=== PATIENT | female | born 1950 | race Caucasian/White ===

== ENCOUNTER → 2020-01-25 11:08 | Outpatient (BNVA) | payer MEDICARE, OTHER, SELFPAY | PROVIDERS: Family Provider Family Medicine; PCP Family Medicine; Visit Provider Family Medicine | DX: E78.5 Hyperlipidemia, unspecified (principal); K21.9 Gastro-esophageal reflux disease without esophagitis | CPT/HCPCS: 80053; 80061; 85025 ==

== ENCOUNTER → 2020-02-15 11:27 | Outpatient (BNVA) | payer MEDICARE, OTHER, SELFPAY | PROVIDERS: Family Provider Family Medicine; PCP Family Medicine; Visit Provider Family Medicine | DX: E78.5 Hyperlipidemia, unspecified (principal); K21.9 Gastro-esophageal reflux disease without esophagitis | CPT/HCPCS: 80053 ==

== ENCOUNTER → 2020-03-24 08:38 | Outpatient (BNVA) | payer MEDICARE, OTHER, SELFPAY | PROVIDERS: PCP Family Medicine; Visit Provider Surgery | DX: Z20.828 Contact with and (suspected) exposure to other viral communicable diseases (principal); Z01.812 Encounter for preprocedural laboratory examination | CPT/HCPCS: 87635 ==

== ENCOUNTER 2020-03-29 05:57 | Day surgery (SDC) | payer MEDICARE, OTHER, SELFPAY ==
[2020-03-29 06:16] VITALS: BP 123/87; PULSE 77; RESP 16; TEMP 36.8; O2SAT 99
[2020-03-29] MEDS: sodium chloride 0.9% 1,000 ML 30 ML IV (06:20)
--- NOTE | 2020-03-29 06:50 | ANES.PREANE2 ---
Pre-Anesthetic Assessment Pre-Anesthetic Assessment: Height/Weight: Height 1.55 m Weight 57.606 kg Temp Pulse Resp BP Pulse Ox 98.2 F 77 16 123/87 99 03/29/20 06:16 03/29/20 06:16 03/29/20 06:16 03/29/20 06:16 03/29/20 06:16 Preop Diagnosis: panendoscopy Proposed Procedure: Operation Date: 03/29/20 07:00 Proposed Procedures p EGD [id number] [id number] K21.9 Z86.010(Not Applicable) - Nikolas Powers MD s Colonoscopy(Not Applicable) - Nikolas Powers MD Was Beta Irlanda taken within 24 hours: N/A Last intake: Intake Last Liquid Date 03/28/20 Last Liquid Time 22:00 Last Solid Date 03/27/20 Last Solid Time 22:00 Social: Social History: No alcohol and No tobacco Exam: Pre-Anes Outpt Exam: alert, oriented x 3, clear to auscultation bilaterally and regular rate & rhythm Airway: Submandibular: WNL Cervical ROM: WNL MP: 2 Dentition: Chipped Additional comments: Advanced dental disease throughout History/ROS: No significant history except as noted Pulmonary: Pulmonary: None reported CV/HEM: CV/HEM: None reported : : None reported Hepatic: Hepatic: None reported GI: GI: GERD Musc/skel: Musc/skel: None reported Neuropsych: Neuropsych: None reported Anesthetic Plan: ASA status: 2 Anesthesia: MAC PFSH Anesthesia PFSH: Medical History (Updated 02/23/20 @ 17:06 by Nikolas Powers MD) Dyslipidemia GERD (gastroesophageal reflux disease) History of colon polyps Surgical History H/O: hysterectomy History of appendectomy History of colonoscopy with polypectomy History of nasal surgery History of tubal ligation Family History Other CAD (coronary artery disease) Cancer Social History Smoking and tobacco status: never smoked Alcohol intake: never Data Anesthesia Cardiac Studies: No Data to Display
--- NOTE | 2020-03-29 07:04 | P.HP_ITS ---
Same Day Surgery H&P Indication for Procedure/HPI DATE OF PROCEDURE: March 29, 2020 CHIEF COMPLAINT/INDICATIONFOR SURGICAL PROCEDURE: gerd /polyps PREOP DIAGNOSIS: panendoscopy PLANNED PROCEDRUE: Operation Date: 03/29/20 07:00 Proposed Procedures p EGD [id number] K21.9 Z86.010(Not Applicable) - Nikolas Powers MD s Colonoscopy(Not Applicable) - Nikolas Powers MD Medications/Allergies* Home Medications Medication Instructions Recorded Confirmed Type aspirin 81 mg tablet,delayed 81 mg PO DAILY 02/15/20 03/28/20 History release coenzyme Q10 10 mg capsule 10 mg PO TID 02/15/20 03/28/20 History multivitamin 1 cap PO DAILY 02/15/20 03/28/20 History Allergies/Adverse Reactions Allergy/AdvReac Type Severity Reaction Status Date / Time Penicillins AdvReac Mild hives Verified 03/29/20 06:20 Pertinent History/Comorbid Conditions* Medical History (Updated 02/23/20 @ 17:06 by Nikolas Powers MD) Dyslipidemia GERD (gastroesophageal reflux disease) History of colon polyps Surgical History (Updated 02/23/20 @ 14:31 by Nikolas Powers MD) H/O: hysterectomy History of appendectomy History of colonoscopy with polypectomy History of nasal surgery History of tubal ligation Family History (Updated 01/25/20 @ 10:39 by Lea Rooney LPN) CAD (coronary artery disease) Cancer Social History Smoking and tobacco status: never smoked Alcohol intake: never Pertinent Exam Findings alert, oriented x 3, regular rate & rhythm and operative site marked Recommendations Surgery/Procedure today Coding Level of Care Code Acute Insurance Agents Supervisor for Daysi Nuno
[2020-03-29 07:31] VITALS: BP 114/79; PULSE 77; RESP 20; TEMP 36.4; O2SAT 95
[2020-03-29 07:44] VITALS: BP 125/70; PULSE 70; RESP 18; TEMP 36.3; O2SAT 96
--- NOTE | 2020-03-29 09:59 | ANE.PACU2 ---
Inpatient post-anesthesia follow up: Airway intact: Yes Vital signs: Temperature 97.4 F Pulse Rate 70 Respiratory Rate 18 Blood Pressure 125/70 Pulse Oximetry 96 Oxygen Delivery Me thod Room Air Oxygen Flow Rate Fraction of Inspir ed Oxygen 2 Hydration adequate: Yes Nausea and vomiting: No Pain level: 2 Mental status: Baseline
== END 2020-03-29 08:14 | disposition home or self-care (01) ==
PROVIDERS: PCP Family Medicine; Visit Provider Surgery
PROC: 0DJ08ZZ Inspection of Upper Intestinal Tract, Via Natural or Artificial Opening Endoscopic (ICD-10-PCS; CPT 43235; principal; 2020-03-29 07:00)
PROC: 0DJD8ZZ Inspection of Lower Intestinal Tract, Via Natural or Artificial Opening Endoscopic (ICD-10-PCS; CPT 45378; 2020-03-29 07:00)
DX: Z86.010 Personal history of colon polyps (principal); K29.70 Gastritis, unspecified, without bleeding; K22.2 Esophageal obstruction; K21.9 Gastro-esophageal reflux disease without esophagitis; E78.5 Hyperlipidemia, unspecified; Z79.82 Long term (current) use of aspirin; Z82.49 Family history of ischemic heart disease and other diseases of the circulatory system; K57.30 Diverticulosis of large intestine without perforation or abscess without bleeding; K64.8 Other hemorrhoids
CPT/HCPCS: 12345; 43239; 45378; 88305; J2704; J7030

== ENCOUNTER 2020-04-06 13:29 | Outpatient (CLI) | payer MEDICARE, OTHER, SELFPAY ==
--- NOTE | 2020-04-06 14:00 | MM_ITS ---
WS: [id number] BILATERAL SCREENING DIGITAL MAMMOGRAM WITH CAD HISTORY: screening mammogram COMPARISON: None available. Bilateral CC and MLO views submitted. Computer aided detection analyzed. Breast composition: There are scattered areas of fibroglandular density. No suspicious masses, microc alcifications or architectural distortion. Bilateral breast calcifications appear benign. This area o f distortion in the upper outer quadrant of the RIGHT breast at the site of prior surgery is probably scar formation. MM/[id number] IMPRESSION: BI-RADS: 2-Benign FOLLOW UP: 1 Year Follow-up
== END 2020-04-06 13:30 | disposition home or self-care (01) ==
LOC: RADSHAW 13:33
PROVIDERS: PCP Family Medicine; Visit Provider Family Medicine
DX: Z12.31 Encounter for screening mammogram for malignant neoplasm of breast (principal)
CPT/HCPCS: 77067

== ENCOUNTER → 2020-08-23 10:01 | Outpatient (BNVA) | payer MEDICARE, OTHER, SELFPAY | PROVIDERS: PCP Family Medicine; Visit Provider Family Medicine | DX: E78.5 Hyperlipidemia, unspecified (principal); M79.675 Pain in left toe(s); Z68.24 Body mass index [BMI] 24.0-24.9, adult | CPT/HCPCS: 80053; 80061; 84550 ==

== ENCOUNTER → 2021-02-21 11:02 | Outpatient (BNVA) | payer MEDICARE, OTHER, SELFPAY | PROVIDERS: PCP Family Medicine; Visit Provider Family Medicine | DX: E78.5 Hyperlipidemia, unspecified (principal); F41.1 Generalized anxiety disorder; K21.9 Gastro-esophageal reflux disease without esophagitis; H81.10 Benign paroxysmal vertigo, unspecified ear | CPT/HCPCS: 80053 ==

== ENCOUNTER 2021-06-15 08:21 | Outpatient (CLI) | payer MEDICARE, OTHER, SELFPAY ==
--- NOTE | 2021-06-15 08:36 | MM_ITS ---
WS: [id number] BILATERAL DIGITAL SCREENING MAMMOGRAPHY WITH CAD CLINICAL INFORMATION: SCREENING HISTORY: Screening mammogram. Pain and soreness. Prior RIGHT lumpectomy. COMPARISON: April 06, 2020 TECHNIQUE: Bilateral CC and MLO views. FINDINGS: Scattered fibroglandular densities bilaterally. Punctate and lucent centered calcifications. Clustere d calcifications. Stable nodular breast tissue upper outer RIGHT breast with parenchymal fibrosis lik cait due to prior lumpectomy. Vascular calcification. No suspicious focal mass, asymmetry, calcificati ons, or architectural distortion. No evidence of malignancy. MM/[id number] IMPRESSION: BI-RADS: 2-Benign FOLLOW UP: 1 Year Follow-up Recommend return to annual screening mammography.
== END 2021-06-15 08:22 | disposition home or self-care (01) ==
PROVIDERS: PCP Family Medicine; Visit Provider Family Medicine
DX: Z12.31 Encounter for screening mammogram for malignant neoplasm of breast (principal)
CPT/HCPCS: 77067

== ENCOUNTER → 2021-08-03 10:30 | Outpatient (BNVA) | payer MEDICARE, OTHER, SELFPAY | PROVIDERS: PCP Family Medicine; Visit Provider Family Medicine | DX: E78.5 Hyperlipidemia, unspecified (principal); F41.1 Generalized anxiety disorder; K21.9 Gastro-esophageal reflux disease without esophagitis | CPT/HCPCS: 80053; 80061; 85025 ==

== ENCOUNTER → 2021-08-08 15:19 | Outpatient (BNVA) | payer MEDICARE, OTHER, SELFPAY | PROVIDERS: PCP Family Medicine; Visit Provider Family Medicine | DX: H81.10 Benign paroxysmal vertigo, unspecified ear (principal) | CPT/HCPCS: 85025 ==

== ENCOUNTER → 2022-02-01 10:59 | Outpatient (BNVA) | payer MEDICARE, OTHER, SELFPAY | PROVIDERS: PCP Family Medicine; Visit Provider Family Medicine | DX: R55 Syncope and collapse (principal); R00.2 Palpitations; E78.5 Hyperlipidemia, unspecified; Z23 Encounter for immunization | CPT/HCPCS: 80053; 80061; 84443; 85025 ==

== ENCOUNTER 2022-03-20 13:58 | Outpatient (CLI) | payer MEDICARE, OTHER, SELFPAY ==
--- NOTE | 2022-03-20 14:15 | USCV_ITS ---
La Cannon Age: 71 Gender: F : 1950 Exam Date: 03/20/2022 14:33 Ordering Phys: Arielle Becerra DO Technologist: [place] [facility] [place]: chest pain BP: 130 / 88 HR: 67 Rhythm: Sinus Technical Quality: Adequate MEASUREMENTS (Male / Female) Normal Values 2D ECHO LV Diastolic Diameter PLAX 2.5 cm 4.2 - 5.9 / 3.9 - 5.3 cm LV Systolic Diameter PLAX 1.9 cm IVS Diastolic Thickness 1.1 cm 0.6 - 1.0 / 0.6 - 0.9 cm IVS Systolic Thickness 1.1 cm LVPW Diastolic Thickness 0.8 cm 0.6 - 1.0 / 0.6 - 0.9 cm LVPW Systolic Thickness 1.1 cm LVOT Diameter 1.8 cm LV Ejection Fraction 2D Teich 53.1 % LV Ejection Fraction MOD 2C 53.0 % LV Ejection Fraction 2C AL 54.9 % LA Diameter 3.2 cm Aorta at Sinotubular Diameter 2.7 cm IVC Diameter 2.0 cm M-MODE Aortic Annulus Diameter 3.3 cm LA Ao Ratio MM 1.1 MV E Point Septal Separation 1.3 cm DOPPLER AV Peak Velocity 109.0 cm/s LVOT Peak Velocity 80.0 cm/s AV Area Cont Eq vti 2.5 cm squared AV Area Cont Eq pk 1.9 cm squared MV Area PHT 2.4 cm squared Mitral E to A Ratio 0.6 MV E' Velocity 29.5 cm/s Mitral E to MV E' Ratio 7.1 Mitral E to LV E' Lateral Ratio 8.6 Mitral E to LV E' Septal Ratio 6.1 TR Peak Velocity 289.0 cm/s TR Peak Gradient 33.4 mmHg Right Atrial Pressure 3.0 mmHg Pulmonary Artery Systolic Pressu 36.4 mmHg PV Peak Velocity 72.0 cm/s RV Acceleration Time 0.1 s FINDINGS Left Ventricle Normal left ventricular size, systolic function and wall thickness, with no regional wall motion abnormalities. Grade I/IV diastolic dysfunction (abnormal relaxation filling pattern), normal to mildly elevated filling pressures. Left ventricular ejection fraction is estimated at 60%. Right Ventricle Normal right ventricular size and systolic function. Mild pulmonary hypertension, RVSP 36.4 mmHg. Right Atrium The right atrium is normal in size. Left Atrium The left atrium is normal in size. Mitral Valve Structurally normal mitral valve without significant stenosis or prolapse. There is no mitral regurgitation. Aortic Valve Aortic valve not well visualized. No aortic valve regurgitation. No aortic valve stenosis. Tricuspid Valve Tricuspid valve not well visualized. Trace tricuspid valve regurgitation. Pulmonic Valve Pulmonic valve not well visualized. Pericardium Normal pericardium without effusion. Aorta Normal ascending aorta dimension. IVC Inferior vena cava not visualized. CONCLUSIONS Normal left ventricular size, systolic function and wall thickness, with no regional wall motion abnormalities. Grade I/IV diastolic dysfunction (abnormal relaxation filling pattern), normal to mildly elevated filling pressures. Left ventricular ejection fraction is estimated at 60%. Normal right ventricular size and systolic function. Mild pulmonary hypertension, RVSP 36.4 mmHg. There are no prior echocardiogram studies to compare. Dr. Pardeep Roman MD (Electronically Signed) Final Date: 20 March 2022 16:14 S
--- NOTE | 2022-03-20 15:00 | USCV_ITS ---
La Cannon Age: 71 Gender: F : 1950 Exam Date: 03/20/2022 14:49 Ordering Phys: Arielle Becerra DO Technologist: [place]am [place] [facility] [place]: pre syncope Risk Factors: Previous Vascular Surgery: Right Brachial BP: / Left Brachial BP: / Right Left Velocity (cm/s) Spectral Plaque Velocity (cm/s) Spectral Plaque Syst/Diast Broadening Syst/Diast Broadening 68.30/ 16.60 Prox CCA 78.50 / 21.10 63.90/ 16.60 Mid CCA 72.50 / 21.80 54.90/ 16.90 Distal CCA 77.80 / 19.60 42.00/ 13.60 Prox ICA 36.30 / 14.10 56.30/ 22.90 Mid ICA 55.60 / 19.30 / Distal ICA 74.10 / 26.70 65.00 ECA 51.80 0.88 ICA/CCA 0.94 Antegrade Vertebral Antegrade 48.90/ 15.90 cm/s 52.10/ 13.00 cm/s Bi Subclavian Bi 67.40 98.30 FINDINGS no stenosis CONCLUSIONS Right ICA stenosis <50%. Left ICA stenosis <50%. Normal antegrade Doppler flow noted in the right vertebral artery. Normal antegrade Doppler flow noted in the left vertebral artery. Ovi Ambrocio MD (Electronically Signed) Final Date: 20 March 2022 17:04 S
== END 2022-03-20 13:59 | disposition home or self-care (01) ==
PROVIDERS: PCP Family Medicine; Visit Provider Family Medicine
DX: R55 Syncope and collapse (principal)
CPT/HCPCS: 93306; 93880

== ENCOUNTER 2022-04-26 09:40 | Outpatient (CLI) | payer MEDICARE, OTHER, SELFPAY ==
--- NOTE | 2022-04-26 | ECG_ITS ---
[facility] Test Date: 2022-04-26 Pat Name: La Cannon Department: Room: Gender: Female [employer] Driver: Sarah Mcmullen : 1950 Requested By: Arielle Becerra Order Number: [id number] Guanaco MD: Dylan See M.D. Interpretive Statements NAME OF STUDY: LEXISCAN SESTAMIBI STRESS TEST INDICATION: Chest Pain, PROCEDURE: At the baseline, the EKG revealed normal sinus rhythm with normal ST Ts. The baseline heart was 63 bpm with a blood pressue of 130/68 mm of Hg Lexiscan was infused over a period of 20 seconds. A total of 0.4 milligrams of Lexiscan was infused. The stress phase was continued for a total of 5 minutes. Heart rate at the end of the stress phase was 92 bpm with a blood pressure 149/63 mm of Hg. The EKG at the peak infusion revealed no significant changes. Sestamibi was injected 20 seconds after the Lexiscan infusion. Heart rate at the end of the recovery phase was 88 bpm with a blood pressure of 132/59 mm of Hg. CONCLUSION: 1. No significant EKG changes with the LexiScan infusion 2. No LexiScan induced chest pain or cardiac arrhythmia 3. Normal blood pressure and heart rate response 4. Sestamibi/sestamibi perfusion scan pending; see separate report. Electronically Signed On 04-27-2022 11:55:32 SENIOR BOILER OPERATOR by Dylan See M.D. [email or web address]
[2022-04-26 10:12] VITALS: BMI 23.6
--- NOTE | 2022-04-26 10:14 | NMCV_ITS ---
NM ese perf SPECT r/s* [id number] La Cannon Age: 72 Gender: F : 1950 Exam Date: 04/26/2022 11:07 Ordering Phys: Arielle Becerra DO Technologist: NICOLE Vincent Exam Location: [facility] Indications: SYNCOPE AND COLLAPSE STRESS TEST [facility] IMAGE PROTOCOL Rest/Stress 1 Lexiscan Day Radiopharmaceutical Dose (mCi) Administration Site Administered by Rest: Tc-99m 10.8 IV NICOLE Serrato Sestamibi Stress:Tc-99m 32.6 IV NICOLE Serrato Sestamibi Rest: 26-Apr-2022 60 Discovery 630 Stress: 26-Apr-2022 30 Discovery 630 0.4mg Lexiscan. Images obtained in supine and prone position. SPECT RESULTS Technical Quality: Excellent Raw Data Analysis: Normal Image Corrections: No attenuation or motion correction applied Summed Stress Score: 5 Summed Rest Score: 1 Summed Difference Score: 4 PERFUSION FINDINGS Small area of slightly decreased tracer uptake in the basal and mid inferior, mid inferolateral and apical lateral regions. Significant reversibility was noted in these regions at rest especially with the supine imaging. However with the prone imaging no significant reversibility was noted FUNCTIONAL RESULTS (calculated via Gated SPECT) Stress Image LV EF (%): 97 Stress EDV (mL):39 TID: 0.72 Stress ESV (mL):1 FUNCTIONAL FINDINGS: Segmental wall motion analysis revealing no gross wall motion abnormalities IMPRESSIONS 1. Myocardial perfusion imaging revealing moderate area of minimal ischemia in the inferior, inferolateral and apical lateral regions suggesting ischemia in the distribution of the RCA/circumflex artery. However because of the inconsistency with the prone imaging, the reliability is questionable? 2. Normal LV ejection fraction of 97%. 3. LV wall motion analysis revealing no gross wall motion abnormalities. 4. Normal LV volume No similar previous studies are available for comparison Dr Dylan See MD [facility] (Electronically Signed) Final Date: 26 April 2022 19:58 S
[2022-04-26] MEDS: regadenoson 0.4 Mg/5 ml Syringe IVP (11:40)
[2022-04-26 12:00] VITALS: BP 132/59; PULSE 89
== END 2022-04-26 09:41 | disposition home or self-care (01) ==
LOC: CDL 09:42
PROVIDERS: PCP Family Medicine; Visit Provider Family Medicine
DX: R55 Syncope and collapse (principal)
CPT/HCPCS: 36415; 78452; 93017; 96374; A9500; J2785

== ENCOUNTER 2022-07-04 13:37 | Outpatient (CLI) | payer MEDICARE, SELFPAY ==
--- NOTE | 2022-07-04 13:51 | MM_ITS ---
WS: [id number] SCREENING DIGITAL BREAST TOMOSYNTHESIS MAMMOGRAM WITH CAD HISTORY: SCREENING COMPARISON: 06/15/2021, 04/06/2020 Bilateral CC and MLO with tomosynthesis and synthetic mammography submitted. Computer aided detection analyzed. Breast composition: There are scattered areas of fibroglandular density. Area of mild architectural d istortion upper outer quadrant RIGHT breast in the middle depth. No associated mass. There is a very mild increased density in this region. Needs to be further evaluated. Benign calcifications within ea ch breast. MM/[place] [id number] IMPRESSION: BI-RADS: 0-Incomplete: Need additional imaging evaluation FOLLOW UP: Need Additional Imaging RIGHT breast: Spot compression views (CC and MLO). True ML. Ultrasound to follo w if abnormality persists.
== END 2022-07-04 13:38 | disposition home or self-care (01) ==
PROVIDERS: PCP Family Medicine; Visit Provider Family Medicine
DX: Z12.31 Encounter for screening mammogram for malignant neoplasm of breast (principal)
CPT/HCPCS: 77063; 77067

== ENCOUNTER 2022-07-23 14:22 | Outpatient (CLI) | payer MEDICARE, OTHER, SELFPAY ==
--- NOTE | 2022-07-23 14:30 | MM_ITS ---
WS: [id number] ADDITIONAL VIEWS RIGHT MAMMOGRAM WITH DIGITAL BREAST TOMOSYNTHESIS. RIGHT BREAST ULTRASOUND HISTORY: Inconclusive findings. COMPARISON: 07/04/2022, 06/15/2021 and 04/06/2020 RIGHT MAMMOGRAM: Spot compression views and true ML with digital breast tomosynthesis and SM. The area of architectural distortion and increased density near completely resolves with additional i maging. There is minimal residual distortion which is probably postsurgical. Prior biopsy in this loc ation. Benign calcifications upper outer quadrant of the RIGHT breast. RIGHT BREAST ULTRASOUND 2-D and color Doppler imaging submitted. Ultrasound directed to the upper-outer quadrant of the RIGHT breast. No underlying abnormality is мария ntified. MM/[place] [id number] IMPRESSION: BI-RADS: 2-Benign FOLLOW UP: 1 Year Follow-up Asymmetry in the upper outer quadrant RIGHT breast resolves with additional solo ging.
--- NOTE | 2022-07-23 14:44 | US_ITS ---
WS: [id number] ADDITIONAL VIEWS RIGHT MAMMOGRAM WITH DIGITAL BREAST TOMOSYNTHESIS. RIGHT BREAST ULTRASOUND HISTORY: Inconclusive findings. COMPARISON: 07/04/2022, 06/15/2021 and 04/06/2020 RIGHT MAMMOGRAM: Spot compression views and true ML with digital breast tomosynthesis and SM. The area of architectural distortion and increased density near completely resolves with additional i maging. There is minimal residual distortion which is probably postsurgical. Prior biopsy in this loc ation. Benign calcifications upper outer quadrant of the RIGHT breast. RIGHT BREAST ULTRASOUND 2-D and color Doppler imaging submitted. Ultrasound directed to the upper-outer quadrant of the RIGHT breast. No underlying abnormality is мария ntified. US/US breast RT limited* [id number] IMPRESSION: BI-RADS: 2-Benign FOLLOW UP: 1 Year Follow-up Asymmetry in the upper outer quadrant RIGHT breast resolves with additional solo ging.
== END 2022-07-23 14:23 | disposition home or self-care (01) ==
LOC: RAD 14:32
PROVIDERS: PCP Family Medicine; Visit Provider Family Medicine
DX: R92.8 Other abnormal and inconclusive findings on diagnostic imaging of breast (principal)
CPT/HCPCS: 76642; 77061; G0279

== ENCOUNTER → 2022-07-26 14:18 | Outpatient (BNVA) | payer MEDICARE, OTHER, SELFPAY | PROVIDERS: PCP Family Medicine; Visit Provider Internal Medicine Cardiovascular Disease | DX: R07.89 Other chest pain (principal); R94.39 Abnormal result of other cardiovascular function study; K21.9 Gastro-esophageal reflux disease without esophagitis; E78.5 Hyperlipidemia, unspecified; F41.1 Generalized anxiety disorder; Z79.82 Long term (current) use of aspirin | CPT/HCPCS: 99204 ==

== ENCOUNTER 2022-10-08 07:16 | Outpatient (CLI) | payer MEDICARE, OTHER, SELFPAY ==
[2022-10-05 11:16] LABS: Basophils % 0.4 %; Eosinophils # 0.1 10^3/uL (0.0-0.8); Eosinophils % 1.2 %; Hematocrit 38.1 % (37.0-47.0); Hemoglobin 12.4 g/dL (11.5-15.3); Lymphocytes # 2.1 10^3/uL (0.8-4.8); Lymphocytes % 28.1 %; Mean Corpuscular HGB Conc 32.5 g/dL (30.0-36.0); Mean Corpuscular Hemoglobin 28.9 pg (28.0-34.0); Mean Corpuscular Volume 88.8 fl (81-99); Mean Platelet Volume 10.6 fL (7.4-10.4); Monocytes # 0.6 10^3/uL (0.2-0.9); Monocytes % 7.6 %; Neutrophils # 4.59 10^3/uL (1.8-7.7); Nucleated Red Blood Cells % 0 %; Platelet Count 312 10^3/cmm (130-400); Red Blood Count 4.29 10^6/uL (4.1-5.3); Red Cell Distribution Width 12.3 % (12.1-15.1); White Blood Count 7.4 10^3/uL (4.0-10.0)
[2022-10-05 11:31] LABS: INR 0.92 (0.83-1.21); Prothrombin Time (Patient) 12.6 Seconds (12.0-15.1)
[2022-10-05 11:37] LABS: Blood Urea Nitrogen 11 mg/dL (8-23); Calcium 9.4 mg/dL (8.5-10.5); Carbon Dioxide 24 mmol/L (22-29); Chloride 105 mmol/L (98-107); Glucose 98 mg/dL (65-115); Osmolality Calculated 291 mOsm/kg (285-295); Sodium 141 mmol/L (136-145)
[2022-10-08] VITALS (36 sets, daily range): BP systolic 94–135; BP diastolic 54–83; PULSE 62–78; RESP 12–26; TEMP 36.4; O2SAT 92–98; BMI 24.3
--- NOTE | 2022-10-08 07:19 | XACV_ITS ---
Ht: 155 cm Wt: 59 kg BSA: 1.60 m2 Gender: Female : 1950 Any Known Allergies: Penicillins Exam Priority: Routine Indication(s): - CAD Procedure(s): Procedure Description: Diagnostic procedure Procedure Description: Left Heart Catheterization Procedure Description: Left ventriculography Procedure Description: Coronary Angiography Esa PAVON; Diagnostic Cath Status: Elective Diagnostic Findings * Left main was found to be extremely short. The left anterior descending artery and the circumflex artery were found to have almost separate ostia. * The left anterior descending artery is a medium caliber vessel which appears to taper off to his LV apex. The first diagonal branch was found to have around 30% ostial narrowing. The arteries were found to be very tortuous. No significant stenotic lesions were noted. * The left circumflex artery is a medium caliber dominant vessel which was found to have an eccentric narrowing of around 50% proximally. The artery continues as the first obtuse marginal vessel with a significant tortuosity. Mild diffuse intimal irregularities were noted in the proximal segment of the first obtuse marginal artery. The AV groove branch is a very small caliber elongated vessel, gives off the left posterolateral ventricular branch. * The right coronary artery is a small caliber nondominant vessel with no significant stenotic lesions. Interventional Findings * Procedure detail: We engaged left main artery with XB 3.5 guide catheter. IV heparin was administered to maintain anticoagulation. After normalization, IFR wire was advanced across the mid left circumflex artery stenosis and was put in distal vessel. iFR value of 0.98 was obtained that was non-ischemic.iFR wire was removed and guide catheter was removed. Patient left in kiln labourer in stable condition. Conclusions 1. 72-year-old female with a history of dyslipidemia presented with increasing episodes of chest pains. She had a Myocardial perfusion imaging which revealed areas of fixed and small areas of reversible defects. In view of her worsening symptoms, in order to further evaluate coronary status, a cardiac catheterization was recommended. Patient underwent left heart catheterization with left and right coronary angiogram and LV angiogram today. 2. The angiogram was performed through the right femoral artery. There was some difficulty in advancing the guidewire. Hand-injection revealed the catheter in the subintimal plane. At this point, I pulled back the catheter and the wire. The catheter and the wire were reintroduced and was able to advance without any difficulty. An aortogram was performed which revealed widely patent iliac arteries with no evidence of any luminal narrowing. Patient did not have any symptoms. The features were suggestive of retrograde dissection with no hemodynamic compromise. 3. The coronary angiogram revealed almost separate ostia for the LAD and the circumflex artery. A 50% ostial lesion was noted in the proximal circumflex artery. The coronary arteries were found to be tortuous. Left dominant circulation was noted. LV ejection fraction was 55%. LVEDP was 10 mmHg. In view of the patient's increasing chest pains, it was thought to be appropriate to consider IFR of the circumflex artery lesion. I reviewed and discussed the cardiac catheterization data with Dr. Hidalgo. Dr. Hidalgo agreed with this plan and took over further management this patient at this point. The IFR revealed no significant gradient across the circumflex lesion. So it was decided to manage this patient medically. 4. S/p iFR of left circumflex artery that is non-ischemic with a value of 0.98. Medical therapy. Recommendations * Aggressive risk factor modification. * Outpatient cardiology follow up in 4 weeks. Interventional RX Recommendation: medical therapy and/or counseling Diagnostic RX Recommendation: other cardiac therapy w/o CABG/PCI Ventriculography Ejection Fraction: 55.0 % LV EDP: 10 mmHg Left Ventriculography Findings: * The LV gram was performed in the MARINA projection. The LV cavity was of normal size. There was no filling defects. No significant mitral valve prolapse or mitral regurgitation. The overall LV ejection fraction was 55%. The LVEDP was 10 mmHg. Pressures Phase:Rest AO : 132 / 54 ( 83 ) @ 9:36:00 AM 131 / 55 ( 86 ) @ 9:40:00 AM 129 / 55 ( 85 ) @ 9:40:00 AM 126 / 66 ( 93 ) @ 9:43:00 AM 222 / 123 ( 155 ) @ 9:56:00 AM LV : 128 / -15 / 9 @ 9:39:00 AM 125 / -13 / 10 @ 9:40:00 AM 123 / -12 / 9 @ 9:40:00 AM Valves Phase:DefaultPhase AV : 0.0 @ 10:39:30 AM 0.0 @ 10:39:30 AM AV Mean Gradient: 0.0 @ 10:39:30 AM 0.0 @ 10:39:30 AM Clinical Evaluation EBL: 5mL-10mL Procedural Details Admit Source: Out Patient. Current Diagnosis : Chest Pain. Pre-Procedure Time Out. Identified patient by full name and date of as verbalized by the patient/guarantor. Does the consent match the physician's order: Yes. Accurate & Complete Informed Consent: Yes. Inpatient/Outpatient History & Physical on Chart: Yes. If H&P is completed, is and addenduem needed: No; If yes, is the addendum complete: N/A. Visualize and Verify Site with Patient/Guarantor: N/A. Relevant Radiology Images available: N/A. Pre-op teaching completed and patient verbalized understanding. The risks, benefits, and alternatives of sedation and/or procedure were discussed by physician. The patient agrees to continue. Procedure started. [facility] Clinical Fraility Score: 3: Managing Well. Railway Switchman Indications: Worsening Angina. Chest Pain Symptom Assessment: Typical Angina Symptoms. Cardiovascular Instability: No. Correct patient, site and procedure confirmed by cath team. Current diagnosis: Chest Pain; Possible CAD. PERRLA. Strong, equal hand taxi dancer bilaterally. Lungs clear x 5 lobes. IV Site on Arrival: 20 gauge in the right anticubital. IV Fluids: 0.9% NaCl at KVO. 0 mL infused prior to kiln labourer. Pre Procedural Pulses: bilateral posterior tibial was Doppled. Pre Procedural Pulses: bilateral dorsalis pedis was 3+. Pre Procedural Pulses: bilateral radial was 3+. Oxygen started at 3liters/min via nasal canula. bilateral groins was prepped with chloroprep then draped in the usual sterile fashion. Physician notified. Baseline sample Acquired. HR: 70 BPM. Baseline sample Acquired. HR: 63 BPM. Baseline sample Acquired. HR: 63 BPM. Family updated by MD prior to the start of the case. Equipment: 5F - Femoral. Heparinized Saline (2 units/mL), 1000 mL bag. Cardiac Cath Pack. Kit, Micropuncture. ACIST Manifold Kit Model BT 2000. Inventory is JJ 5F 11cm [place]en Plus Sheath. Physician arrived. Physician scrubbed in. Immediate Pre-Procedure Time Out. Correct Patient: Yes; Correct Procedure: Yes; Correct Site: Yes; Correct Patient Position: Yes; Correct Supplies: Yes; Dried Flammable Prep: Yes; Blood Products Available: N/A;. Lidocaine 1% infiltrated to the right groin. Arterial access obtained with micropuncture set. A CRD 5F JR4 Diagnostic Catheter was advanced over the wire and used for Right coronary angiography. Unable to advance wire/catheter past ILIAC on right side. Wire removed Hand injection performed. Catheter manipulated over the wire. Hand injection performed after wire removed. Dr. Hidalgo notified to review findings. Wire and catheter removed over the wire. Dr Hidalgo here to review with Dr See. Standare wire inserted and advanced to the distal Aorta. A CRD 5F 145 Angled Pig Diagnostic Catheter was advanced over the wire and used for Lower extremity arteriography. Pigtail postioned above the bifurcation of the iliacs. Aortagram performed @ 10 mL/sec for a total of [address] See/Dr Hidalgo revied film. Proceeding with cardiac cath. Catheter advanced over the exchange wire to the LV. EDP Sample taken: LV 128/-16,9; HR: 63 BPM; SpO2: 99%. LV gram performed in MARINA @ 10 mL/second for a total of 30 mL. Patient EF: Abnormal. EDP Sample taken: LV 125/-14,10; HR: 64 BPM; SpO2: 99%. Pullback taken: LV 123/-13,9; AO 131/55(86); Mean: 0mmHg, Peak to Peak: 0mmHg, SEP: 17sec/min; HR: 65 BPM; SpO2: 100%. Catheter removed over the exchange wire. A CRD 5F JL4 Diagnostic Catheter was advanced over the wire and used for Left coronary angiography. Multiple views taken of left coronary artery. Catheter removed over the exchange wire. A CRD 5F JR4 Diagnostic Catheter was advanced over the wire and used for Right coronary angiography. Physician review of films. Multiple views taken of right coronary artery. Dr Hidalgo in to perform IFR of a lesion. Dr See scrubbed out. Physician scrubbing in. Sheath to KVO. Dr. Hidalgo scrubbed in to perform intervention. Patient's family updated. Catheter removed over the exchange wire. Sheath upsized to a 6 Fr. 6 japanese CLS 3.5 guide catheter was inserted over the wire. Guide seated in the LCS. IFR guidewire was advanced through the guide catheter to lesion in the mid Circ. IFR wire normalized and then advanced across lesion in the mid Circumflex. IFR SPOT 0.98 IFR PULL BACK 0.99. Results checked. IFR WIRE REMOVED. Guide catheter out over the wire. ACT drawn. Results 350 seconds. Therapeutic limits - pre-heparin administration 90-150 seconds and monitoring heparin during a vascular procedure >250 seconds. Physician scrubbed out. A Suture was successful obtaining hemostatsis at the Right Femoral artery insertion site. Sheath(s) sutured into position with 2-0 silk and sterile 4x4's and Op-site applied over the site. No oozing or signs and symptoms of hematoma noted. Arterial sheath flushed and connected to tranducer and pressure bag with heparinized saline. Post Procedure: Pulses reassessed and unchanged. PERRLA. Strong, equal hand taxi dancer bilaterally. No VTE prophylaxis required. Medication waste: Heparin- 4500 units; Versed- 1 mg, Fentanyl- 50 mcg. Total IV fluids: 80 mL. Fluoro: 12:06. Contrast type used: Omnipaque 300 mgI/mL, 500 mL bottle. [id number]. Post-op diagnosis: Non Obstuctive Coronary Artery Disease. 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 Estimated blood loss: 5mL-10mL. Responsiveness - Normal response to verbal stimuli; alert and oriented, PERRLA. Airway - Unaffected, no intervention required; spontaneous ventilation. Circulation: W/N/L, pulses unchanged. Nausea/Vomiting: No. Procedure completed. Patient transferred by bed to CPRU. Vital chart was stopped. Procedure started. Access Site Site: Right Femoral artery Sheath Size: 5 Fr Hemostasis Method: Suture Hemostasis Success: Successful Procedure Medications Start: 8:12 AM Stop: 8:12 AM Medication: Versed 1 mg and Fentanyl 25 mcg Amount: 1 Route: I.V. Start: 8:23 AM Stop: 8:23 AM Medication: Heparin Amount: 1500 units Route: I.V. Start: 8:30 AM Stop: 8:30 AM Medication: Versed Amount: 1 mg Route: I.V. Start: 8:56 AM Stop: 8:56 AM Medication: Versed 1 mg and Fentanyl 25 mcg Amount: 1 Route: I.V. Start: 9:02 AM Stop: 9:02 AM Medication: Heparin Amount: 5000 units Route: I.V. I, the attending physician, have reviewed and verified all procedure medications. Yes, all medications given per verbal order History/Risk Factors Hypertension: No Dyslipidemia: Yes Peripheral Arterial Disease (PAD): No Myocardial Infarction (AL): No Obesity: No Renal Disease: No Tobacco Use: Never Prior Interventions PCI: No CABG: No Valve Surgery: No Report Signatures Interventional Workflow Finalized by Anjum Hidalgo MD on 10/09/2022 10:50 AM Diagnostic Workflow Finalized by Dr Dylan See MD [facility] on 10/08/2022 11:48 PM
[2022-10-08] MEDS: diphenhydrAMINE 50 mg Capsule PO (07:50)
--- NOTE | 2022-10-08 08:01 | P.HP_ITS ---
Providers/Chief Complaint Primary Care Provider: Arielle Becerra DO Chief Complaint: R94.39 History of Present Illness La Goetz is a 72 year old female with a history of dyslipidemia, is presenting with increasing chest pains. She had an abnormal Myocardial perfusion imaging. She is also known to have GERD, generalized anxiety disorder. In view of her worsening symptoms, a cardiac catheterization was recommended. Review of Systems Narrative: CONSTITUTIONAL: No fever or chills. EYES: No blurring of vision or other visual disturbances lately. ENT: No hoarseness of voice, auditory disturbances or sore throat. CARDIOVASCULAR: As mentioned above. RESPIRATORY: No significant cough. GASTROINTESTINAL: GERD GENITOURINARY: No dysuria or hematuria. INTEGUMENTARY: No skin rashes or history of skin cancer. NEURO: No transient ischemic attacks or amaurosis. PSYCHIATRIC: Generalized anxiety disorder HEMATOLOGIC: No bleeding disorders or significant anemia. ENDOCRINE: No history of polyuria or polydipsia. MUSCULOSKELETAL: No recent joint pain or swelling. ALLERGY/IMMUNOLOGY: As mentioned above. Medications/Allergies Home Medications Medication Instructions Recorded Confirmed Last Taken Type aspirin 81 mg tablet,delayed 81 mg PO DAILY 02/15/20 10/05/22 03/27/20 History release coenzyme Q10 10 mg capsule (Co 10 mg PO TID 02/15/20 10/05/22 03/28/20 History Q-10) multivitamin 1 cap PO DAILY 02/15/20 10/05/22 03/28/20 History sucralfate 1 gram tablet (Carafate) 1 g PO Q6H PRN supplement 07/26/22 10/05/22 Unknown History pantoprazole 40 mg tablet,delayed See Rx Instructions .Route 08/30/22 10/05/22 Unknown Rx release .COMPLEX #180 tabs sertraline 50 mg tablet See Rx Instructions .Route 08/30/22 10/05/22 Unknown Rx .COMPLEX #90 tabs simvastatin 40 mg tablet 40 mg PO DAILY #90 tabs 08/30/22 10/05/22 Unknown Rx Allergies Allergy/AdvReac Type Severity Reaction Status Date / Time Penicillins AdvReac Mild hives Verified 08/30/22 10:21 PFSH Acute PFSH: Medical History Dyslipidemia GERD (gastroesophageal reflux disease) History of colon polyps Needs flu shot Surgical History H/O esophagogastroduodenoscopy (03/29/20) H/O: hysterectomy History of appendectomy History of colonoscopy with polypectomy (03/29/20) History of nasal surgery History of tubal ligation Family History Other CAD (coronary artery disease) Cancer Social History Smoking and tobacco status: never smoked Alcohol intake: never Substance/Drug Use: never Physical Exam Narrative: GENERAL: The patient is alert and oriented times three. Not in any acute distress. HEENT: No significant pallor, icterus or lymphadenopathy.Oral cavity: There are no mucous membrane lesions. NECK: Trachea appears to be central. No masses noted. No JVD or thyromegaly appreciated. RESPIRATORY: Chest is symmetrical. No intercostals muscle retraction or any ac cessory muscle activation. There is no chest wall tenderness. Breath sounds are heard bilaterally. No rales or rhonchi heard. No evidence of any consolidation. BREASTS: Deferred. HEART: The heart sounds are normal. No S3 or S4. No significant murmurs. No pericardial rub ABDOMEN: No vessel pulsations or distention. No tenderness. No organomegaly appreciated. Bowel sounds are normally heard. : Deferred. RECTAL: Deferred. LYMPHATIC: No lymphadenopathy noted in the neck. EXTREMITIES: No edema or cyanosis. No clubbing. MUSCULOSKELETAL: No acute joint deformities or swelling SKIN: There are no significant rashes or ecchymosis NEUROPSYCHIATRIC: The patient is alert and oriented x3. Appears to be in a good mood. No tremors or rigidity noted. Data 10/05/22 10:56 10/05/22 10:56 Other data: Laboratory Last Values WBC 7.4 10^3/uL (4.0-10.0) 10/05/22 10:56 RBC 4.29 10^6/uL (4.1-5.3) 10/05/22 10:56 Hgb 12.4 g/dL (11.5-15.3) 10/05/22 10:56 Hct 38.1 % (37.0-47.0) 10/05/22 10:56 MCV 88.8 fl (81-99) 10/05/22 10:56 MCH 28.9 pg (28.0-34.0) 10/05/22 10:56 MCHC 32.5 g/dL (30.0-36.0) 10/05/22 10:56 RDW 12.3 % (12.1-15.1) 10/05/22 10:56 Plt Count 312 10^3/cmm (130-400) 10/05/22 10:56 MPV 10.6 fL (7.4-10.4) H 10/05/22 10:56 Neut % (Auto) 62.0 % 10/05/22 10:56 Lymph % (Auto) 28.1 % 10/05/22 10:56 Tama % (Auto) 7.6 % 10/05/22 10:56 Eos % (Auto) 1.2 % 10/05/22 10:56 Baso % (Auto) 0.4 % 10/05/22 10:56 Neut # (Auto) 4.59 10^3/uL (1.8-7.7) 10/05/22 10:56 Lymph # (Auto) 2.1 10^3/uL (0.8-4.8) 10/05/22 10:56 Tama # (Auto) 0.6 10^3/uL (0.2-0.9) 10/05/22 10:56 Eos # (Auto) 0.1 10^3/uL (0.0-0.8) 10/05/22 10:56 Baso # (Auto) 0.0 10^3/uL (0.0-0.1) 10/05/22 10:56 Nucleated RBC % (auto) 0 % 10/05/22 10:56 Nucleated RBCs # 0.0 /100WBC 10/05/22 10:56 PT 12.6 Seconds (12.0-15.1) 10/05/22 10:56 INR 0.92 (0.83-1.21) 10/05/22 10:56 Sodium 141 mmol/L (136-145) 10/05/22 10:56 Potassium 4.0 mmol/L (3.5-5.1) 10/05/22 10:56 Chloride 105 mmol/L (98-107) 10/05/22 10:56 Carbon Dioxide 24 mmol/L (22-29) 10/05/22 10:56 Anion Gap 16.0 (5-19) 10/05/22 10:56 BUN 11 mg/dL (8-23) 10/05/22 10:56 Creatinine 0.6 mg/dL (0.5-0.9) 10/05/22 10:56 GFR Calculation Not Reportable 10/05/22 10:56 Glucose 98 mg/dL (65-115) 10/05/22 10:56 Calculated Osmolality 291 mOsm/kg (285-295) 10/05/22 10:56 Calcium 9.4 mg/dL (8.5-10.5) 10/05/22 10:56 Blood Type O Positive 10/05/22 10:56 Rho(D) Type Positive 10/05/22 10:56 Antibody Screen Negative 10/05/22 10:56 A&P Assessment and plan (1) Worsening angina: (2) Abnormal nuclear stress test: (3) Dyslipidemia: (4) GERD (gastroesophageal reflux disease): Qualifiers: Esophagitis presence: esophagitis presence not specified Qualified Code(s): K21.9 - Gastro-esophageal reflux disease without esophagitis Plan In view of the patient's or worsening symptoms, in order to further evaluate the patient's her coronary status, a cardiac catheterization is recommended. The risk of bleeding, hematoma, vascular injury, myocardial infarction, myocardial perforation, malignant cardiac arrhythmias ,CVA, renal failure and other concomitant complications were explained in detail. Patient understood this well and consented to proceed. Based on the angiogram findings, further recommendations will be made. Attestations Medical Necessity Statement*: Pt may require an overnight stay. Coding Level of Care Code 14456 Diagnoses Worsening angina I20.0 Abnormal nuclear stress test R94.39 Dyslipidemia E78.5 GERD (gastroesophageal reflux disease) K21.9 Esophagitis presence: esophagitis presence not specified
--- NOTE | 2022-10-08 09:35 | PC.NURSE ---
cpru nurse received pt from earth science laboratory technician post [facility]. pt complains of no pain. pt has right groin access with pressure bag attached. no bruising or hematoma noted. pt attached to vitals machine and will be monitored per protocol. plan is to recovery here in [facility] for approximately 30 minutes and then sent to [facility] for complete recovery til discharge.
--- NOTE | 2022-10-08 11:24 | PC.NURSE ---
received from cardiac wood and wood products labourer at 1025 via bed.report received.pt is drowsy but easily awakened.denies pain.sr on monitor.right groin with femoral arterial sheath intact to pressurized system.drsg is dry and intact.no hematoma noted.right leg is warm to touch and with brisk capillary refill.palpable dp pulse noted.pt instructed in activity restrictions s/p femoral artery procedure.and instructed to notify staff for any bleeding ,pain,sob,numbness..or for any concerns at all.pt verb understanding of instructions
[2022-10-08 14:22] LABS: Partial Thromboplastin Time 225.9 SECONDS (23.9-36.7)
[2022-10-08 17:20] LABS: Partial Thromboplastin Time 39.6 SECONDS (23.9-36.7)
[2022-10-08] MEDS: pantoprazole DR 40 mg Tablet PO (18:05)
[2022-10-08] MEDS: atorvastatin 40 mg Tablet 20 MG PO (18:07)
--- NOTE | 2022-10-08 19:20 | ECG_ITS ---
[facility] Test Date: 2022-10-08 Pat Name: La Goetz Department: Room: 112 Gender: Female Sales Marketing Manager: : 1950 Requested By: Dylan See Order Number: [id number] Guanaco MD: Dylan See M.D. Measurements Intervals [place] Rate: 66 P: 51 MT: 166 QRS: 23 QRSD: 94 T: 31 QT: 406 QTc: 427 Interpretive Statements SINUS RHYTHM No previous ECG available for comparison Electronically Signed On 10-11-2022 12:23:38 CDT by Dylan See M.D. [id number]
--- NOTE | 2022-10-08 19:42 | PC.NURSE ---
ptt finally below 45.right femoral arterial sheath pulled at 1825.manual pressure held x 20 min.no hematoma formation noted.vss.right leg remained warm to touch and with brisk capillary refill.palpable dp pulse noted.site dressed with 2x2 gauze and secured with biocclusive drsg.pt instructed in activity restrictions s/p sheath pull..and instructed to notify staff for any bleeding,pain,numbness..or for any concerns at all.pt verb understanding of instructions
[2022-10-09] VITALS (22 sets, daily range): BP systolic 111–134; BP diastolic 58–67; PULSE 65–75; RESP 11–21; TEMP 36.1–36.6; O2SAT 91–96
[2022-10-09] MEDS: sertraline 50 mg Tablet PO (08:30)
[2022-10-09] MEDS: aspirin 81 mg EC Tablet PO (08:30)
[2022-10-09] MEDS: pantoprazole DR 40 mg Tablet PO (08:30)
[2022-10-09] MEDS: multivitamin therapeutic Tablet 1 TAB PO (08:30)
== END 2022-10-09 10:27 | disposition home or self-care (01) ==
LOC: CCL 07:16 → CSU 10:45
PROVIDERS: Internal Medicine; PCP Family Medicine; Visit Provider Internal Medicine Cardiovascular Disease
DX: R94.39 Abnormal result of other cardiovascular function study (principal); F41.1 Generalized anxiety disorder; Z79.82 Long term (current) use of aspirin; I25.118 Atherosclerotic heart disease of native coronary artery with other forms of angina pectoris; E78.5 Hyperlipidemia, unspecified; K21.9 Gastro-esophageal reflux disease without esophagitis; R07.9 Chest pain, unspecified
CPT/HCPCS: 36415; 80048; 85025; 85347; 85610; 85730; 86850; 86900; 93005; 93458; 93571; 96365; 96376; 99152; 99153; C1769; C1887; C1894; J1644; J2250; J3010; J7030; Q0163; Q9967

== ENCOUNTER → 2022-10-24 08:56 | Outpatient (BNVA) | payer MEDICARE, OTHER, SELFPAY | PROVIDERS: PCP Family Medicine; Visit Provider Nurse Practitioner Family | DX: I25.10 Atherosclerotic heart disease of native coronary artery without angina pectoris (principal); Z79.82 Long term (current) use of aspirin | CPT/HCPCS: 36415; 80048; 99214 ==

== ENCOUNTER → 2022-11-26 14:13 | Outpatient (BNVA) | payer MEDICARE, OTHER, SELFPAY | PROVIDERS: PCP Family Medicine; Visit Provider Internal Medicine Cardiovascular Disease | DX: I25.10 Atherosclerotic heart disease of native coronary artery without angina pectoris (principal); R07.89 Other chest pain; E78.5 Hyperlipidemia, unspecified; R00.2 Palpitations | CPT/HCPCS: 99214 ==

== ENCOUNTER → 2023-02-28 12:02 | Outpatient (BNVA) | payer MEDICARE, OTHER, SELFPAY | PROVIDERS: PCP Family Medicine; Visit Provider Family Medicine | DX: E78.5 Hyperlipidemia, unspecified (principal) | CPT/HCPCS: 80053; 80061 ==

== ENCOUNTER → 2023-07-02 10:22 | Outpatient (BNVA) | payer MEDICARE, OTHER, SELFPAY | PROVIDERS: PCP Family Medicine; Visit Provider Nurse Practitioner Family | DX: I25.10 Atherosclerotic heart disease of native coronary artery without angina pectoris (principal) | CPT/HCPCS: 99213 ==

== ENCOUNTER → 2023-10-03 14:16 | Outpatient (BNVA) | payer MEDICARE, OTHER, SELFPAY | PROVIDERS: PCP Family Medicine; Visit Provider Family Medicine | DX: E78.5 Hyperlipidemia, unspecified (principal) | CPT/HCPCS: 80053; 80061 ==